=== PATIENT | male | born 1980 | race Caucasian/White ===

== ENCOUNTER 2025-01-26 09:18 | Emergency (ER) | payer BC, SELFPAY ==
--- NOTE | ~2025-01-26 | CT_ITS ---
Non-contrast CT scan of the Abdomen and Pelvis Clinical indication: Left flank pain, vomiting Technique: 2.5 mm axial scans were obtained through the abdomen and pelvis without intravenous or or al contrast. Dose reduction technique was used on this scan by utilizing automated exposure control a nd iterative reconstruction technique. The dose-length product (DLP) was 1397.43 mGy-cm. Findings: Images through the lung bases reveal 2 mm medial right basilar pulmonary nodule (axial marla ge [id number]). There is no evidence of renal or ureteral calculi. The kidneys and the ureters are nondilated. Probab le bilateral parapelvic renal cysts. There is diffuse hepatic steatosis. Cholecystectomy clips are present. The spleen, pancreas, and adre nals appear normal. There is no aortic aneurysm. There is no evidence of bowel obstruction. Images through the pelvis were performed. There is no evidence of ascites or lymphadenopathy. Urinary bladder unremarkable. No pelvic mass seen. Impression: No acute abnormality seen. Probable bilateral parapelvic renal cysts. Diffuse hepatic steatosis. Reviewed, dictated and finalized at [facility]. Impression: No acute abnormality seen. Probable bilateral parapelvic renal cysts. Diffuse hepatic steatosis.
[2025-01-26 09:22] VITALS: BP 187/109; PULSE 119; RESP 20; TEMP 36.6; O2SAT 98
--- NOTE | 2025-01-26 10:26 | ED_ITS ---
HPI - Nausea/Vomiting/Diarrhea General Chief complaint: Nausea/Vomiting/Diarrhea Stated complaint: nausea, dry heaving, since Monday Time Seen by Provider: 01/26/25 10:26 Source: patient Mode of arrival: ambulatory Limitations: no limitations History of Present Illness HPI Narrative: 44 years old male history of hypertension, cholecystectomy. Complaining of nausea, dry heaves for the last 6 days. Patient reports no vomiting, loose stool twice 5 days ago,, normal bowel movement over the last 4 days. No abdominal pain, no fever, no chills, slight discomfort at the right flank area Patient denies smoking, drinking or using drugs.. Related Data Allergies Allergy/AdvReac Type Severity Reaction Status Date / Time Penicillins Allergy Mild Unknown Verified 01/26/25 11:05 Review of Systems 2 Review of Systems: All systems reviewed & are unremarkable except as noted in HPI and below PMFSH Past Medical History Medical History (Updated 01/26/25 @ 12:51 by Briana Beltran MD) Hypertension Family History Family History Father Hypertension Mother Hypertension Sibling Patient's brother is in good health Grandparent Carcinoma of colon Other Diabetes mellitus Social History Social History Smoking packs per day: 0.5 Smoking cigarettes per day: 10.0 Years smoked: 10 Smoking pack-years: 5.00 Smoking status: Former smoker Second hand tobacco smoke exposure: No Smoking end date: 08/21/13 Alcohol intake: current Substance use: unknown Lack of Transportation: No Lack of Food: Never True Current Housing: I Have Housing Concerned About Future Housing: No Difficulty Paying Gas/Electric Bills: No Difficulty Paying for Meds: No Currently Unemployed: No Education: Associate Degree Difficulty w/ Childcare or Family Care: No Exam 2 Narrative: General appearance: Well-developed, well-nourished Skin: Normal color Head: Normocephalic, nontraumatic Eyes: Clear conjunctiva ENT: Oropharynx normal, ears normal, nose normal Neck: Supple, nontender Chest and respiratory: Airway patent, no respiratory distress, no accessory muscle use Heart: Regular rate/rhythm Abdomen: Soft, nontender, no organomegaly, quiet bowel sounds Vascular: Normal peripheral pulses, normal capillary refill. Musculoskeletal: Normal range of motion, nontender back Neurologic: Alert and oriented ?3, PLATING OPERATOR is normal as tested, no gross motor deficit Course Vital Signs Vital signs: Vital Signs Temperature 36.6 C 01/26/25 09:22 Pulse Rate 119 H 01/26/25 09:22 Respiratory Rate 20 01/26/25 09:22 Blood Pressure 187/109 H 01/26/25 09:22 Pulse Oximetry 98 01/26/25 09:22 Oxygen Delivery Room Air 01/26/25 09:22 Temperature 36.6 C 01/26/25 09:22 Pulse Rate 119 H 01/26/25 09:22 Respiratory Rate 20 01/26/25 09:22 Blood Pressure 187/109 H 01/26/25 09:22 Pulse Oximetry 98 01/26/25 09:22 Oxygen Delivery Room Air 01/26/25 09:22 MDM - Nausea/Vomiting/Diarrhea MDM Narrative Medical decision making narrative: Patient came with feeling sick and dry heaves for the last 6 days Vital signs showing blood pressure 187/109, heart rate 119 otherwise within normal limit, patient did not take his blood pressure medication today. Physical examination unremarkable Differential diagnosis esophagitis, gastritis, pancreatitis, anxiety like symptoms, electrolyte imbalance, dehydration, urinary tract infection, kidney stone. Blood workup today includes CBC, CMP, lipase, TSH showed WBC of 20.2, total bilirubin 3.2, AST 53, Urinalysis showed CT abdomen pelvis without contrast showed no acute significant abnormality Lab Data 01/26/25 10:54 01/26/25 10:54 Labs: Lab Results 01/26/25 01/26/25 Range/Units 10:54 12:17 WBC 20.2 H (4.5-10.0) K/mm3 RBC 5.65 (4.6-6.20) M/mm3 Hgb 16.2 (14.0-18.0) g/dL Hct 48.7 (42.0-52.0) % MCV 86.2 (80-100) fl MCH 28.7 (26-34) pg MCHC 33.3 (32-36) g/dl RDW 12.7 (11.5-14.5) % Plt Count 401 H (150-375) k/mm3 MPV 9.3 (7.4-10.4) fl Immature Gran % (Auto) Not Reportable Neut % (Auto) Not Reportable Lymph % (Auto) Not Reportable [place] % (Auto) Not Reportable Eos % (Auto) Not Reportable Baso % (Auto) Not Reportable Lymph # (Auto) Not Reportable [place] # (Auto) Not Reportable Eos # (Auto) Not Reportable Baso # (Auto) Not Reportable Abs Immat Gran (auto) Not Reportable Absolute Neuts (auto) Not Reportable Absolute Nucleated RBC Not Reportable Total Counted 100 Neutrophils % (Manual) 84 H (46-73) % Band Neutrophils % 2 (0-6) % Lymphocytes % (Manual) 11 L (18-44) % Monocytes % (Manual) 3 (3-9) % Nucleated RBC % Not Reportable Abs Neuts (Manual) 17.37 H (1.3-6.7) K/mm3 Abs Lymphs (Manual) 2.22 (1.1-4.5) K/mm3 Abs Monocytes (Manual) 0.60 (0.1-0.90) K/mm3 Platelet Estimate Slightly increased (Adequate) Schistocytes None seen Sodium 135 L (137-145) mmol/L Potassium 4.0 (3.4-5.0) mmol/L Chloride 100 (98-107) mmol/L Carbon Dioxide 22 (22-30) mmol/L Anion Gap 13 H (4-12) mmol/L BUN 10 (9-20) mg/dL Creatinine 0.91 (0.7-1.3) mg/dL Estim Creat Clear Calc 137 ml/min Estimated GFR > 60 (59 - ) Glucose 120 H (65-110) mg/dL Calcium 9.1 (8.4-10.2) mg/dL Total Bilirubin 3.2 H (0.2-1.3) mg/dL AST 44 (17-59) U/L ALT 53 H (6-50) U/L Alkaline Phosphatase 98 (38-126) U/L Total Protein 8.6 H (6.3-8.2) g/dL Albumin 4.5 (3.5-5.1) g/dL Lipase 74 (23-300) U/L TSH 1.500 (0.465-4.680) uIU/mL Urine Color Yellow (Yellow) Urine Appearance Clear (Clear) Urine pH 6.0 (5.0-9.0) Ur Specific [place] 1.012 (1.001-1.035) Urine Protein 2+ H (Negative) mg/dL Urine Glucose (UA) Negative (Negative) mg/dL Urine Ketones Trace H (Negative) mg/dL Ur Blood (Man) Negative (Negative) Urine Nitrate Negative (Negative) Urine Bilirubin Negative (Negative) Urine Urobilinogen 1.0 (<2.0) mg/dL Add Ur Microanalysis Reviewed Leukocyte Esterase Rfl Trace H (Negative) DIANA/UL Urine RBC 0-2 (0-2) /hpf Urine WBC 0-5 (0-3) /hpf Ur Squamous Epith Cells Occasional (Few) /hpf Urine Bacteria None seen /hpf Urine Casts 6-10 Hyaline Casts 0-2 (None) /lpf Urine Mucus Present /lpf Discharge Plan Discharge Clinical Impression: Nausea, Leukocytosis, Urinary tract infection Patient Disposition: Home Condition: Stable Instructions: Antibiotic Form, Urinary Tract Infection in Men (ED), Acute Nausea and Vomiting (ED) Additional Instructions: Return if symptoms are worsening , call your family physician for appointment, take Tylenol as as needed for aches and pain, continue home medications. Repeat blood workup in 3-5 days because white count is elevated 20.2. Patient Language: Ghanaian Prescriptions: New ondansetron HCl 4 mg tablet 4 mg PO Q4H Qty: 10 0RF Rx Instructions: 1st dose 1-2 hr before radiation ciprofloxacin HCl [Cipro] 500 mg tablet 500 mg PO Q12H Qty: 14 0RF ciprofloxacin HCl [Cipro] 500 mg tablet 500 mg PO Q12H Qty: 14 0RF ondansetron 4 mg tablet,disintegrating 4 mg PO Q4H PRN (Reason: nausea and vomiting) 3 Days Qty: 10 0RF No Action azelastine 0.05 % drops 1 drp EACH EYE BID Qty: 18 1RF sildenafil 100 mg tablet 100 mg PO DAILY PRN (Reason: sexual activity) Qty: 8 5RF Rx Instructions: administer 30 minutes to 4 hours before activity losartan-hydrochlorothiazide 100-12.5 mg tablet See Rx Instructions .ROUTE .COMPLEX Qty: 90 2RF Dose Instruction: TAKE 1 TABLET DAILY Rx Instructions: TAKE 1 TABLET DAILY Follow-up/Referrals: Chip Ortiz DO [Primary Care Provider] - Stand Alone Forms: Work/School Release IP
[2025-01-26 11:02] LABS: Hematocrit 48.7 % (42.0-52.0); Hemoglobin 16.2 g/dL (14.0-18.0); Mean Corpuscular HGB Conc 33.3 g/dl (32-36); Mean Corpuscular Hemoglobin 28.7 pg (26-34); Mean Corpuscular Volume 86.2 fl (80-100); Mean Platelet Volume 9.3 fl (7.4-10.4); Platelet Count Result 401 k/mm3 (150-375); Red Blood Count 5.65 M/mm3 (4.6-6.20); Red Cell Distribution Width 12.7 % (11.5-14.5); White Blood Count 20.2 K/mm3 (4.5-10.0)
[2025-01-26] MEDS: ONDANSETRON INJ 4 MG/2 ML VIAL IV PUSH (11:05)
[2025-01-26] MEDS: SODIUM CHLORIDE 0.9% IV 2,000 ML 999 ML IV CONT (11:05)
[2025-01-26] MEDS: diphenhydrAMINE HCl INJ 50 MG/ML VIAL IV PUSH (11:08)
[2025-01-26] MEDS: METOCLOPRAMIDE HCL INJ 10 MG/2 ML VIAL IV PUSH (11:10)
[2025-01-26 11:13] LABS: Alanine Aminotransferase 53 U/L (6-50); Albumin Level 4.5 g/dL (3.5-5.1); Alkaline Phosphatase 98 U/L (38-126); Anion Gap 13 mmol/L (4-12); Aspartate Amino Transferase 44 U/L (17-59); Bilirubin,Total 3.2 mg/dL (0.2-1.3); Blood Urea Nitrogen 10 mg/dL (9-20); Calcium 9.1 mg/dL (8.4-10.2); Carbon Dioxide 22 mmol/L (22-30); Chloride 100 mmol/L (98-107); Estimated CRCL calculation 137 ml/min; Estimated Glomerular Filt Rate > 60; Glucose 120 mg/dL (65-110); Lipase 74 U/L (23-300); Sodium 135 mmol/L (137-145); Total Protein 8.6 g/dL (6.3-8.2)
[2025-01-26 11:24] LABS: Band Neutrophils Percent 2 % (0-6); Lymphocytes Absolute Manual 2.22 K/mm3 (1.1-4.5); Lymphocytes Percent Manual 11 % (18-44); Monocytes Percent Manual 3 % (3-9); Neutrophils Absolute Manual 17.37 K/mm3 (1.3-6.7); Neutrophils Percent Manual 84 % (46-73); Total Cells Counted 100
[2025-01-26 11:25] LABS: Platelet Estimate Slightly Increased (Adequate); Schistocytes None Seen
[2025-01-26 12:34] LABS: Add Urine Microscopic? YES; Appearance Urine Clear (Clear); Bacteria Urine None Seen /hpf; Bilirubin Urine Negative (Negative); Blood Urine Negative (Negative); Color Urine Yellow (Yellow); Glucose Urine UA Negative (Negative); Ketones Urine Trace mg/dL (Negative); Leukocyte Esterase Ur Trace LEU/UL (Negative); Mucus Urine Present /lpf; Need Manual Microscopic Reviewed; Nitrate Urine Negative (Negative); Protein Urine 2+ mg/dL (Negative); RBC Urine 0-2 /hpf (0-2); Specific Grav Ur 1.012 (1.001-1.035); Squamous Epithelial Cell Urine Occasional /hpf (Few); WBC Urine 0-5 /hpf (0-3)
[2025-01-26 12:35] LABS: Hyaline Casts Urine 0-2 /lpf
== END 2025-01-26 13:07 | disposition home or self-care (01) ==
PROVIDERS: Emergency Provider Emergency Medicine; PCP Internal Medicine
DX: N39.0 Urinary tract infection, site not specified (principal); D72.829 Elevated white blood cell count, unspecified; R11.0 Nausea; I10 Essential (primary) hypertension
CPT/HCPCS: 36415; 74176; 80053; 81001; 83690; 84443; 85025; 96361; 96374; 96375; 99284; J1200; J2405; J2765; J7030